=== PATIENT | female | born 1980 | race Caucasian/White ===

== ENCOUNTER 2018-08-07 09:38 | Emergency (ER) | payer OTHER ==
[~2018-08-07] VITALS: Ht 160 cm; Wt 59.0 kg
[2018-08-07 10:06] LABS: URINE BILIRUBIN NEGATIVE (Negative); URINE BLOOD NEGATIVE (Negative); URINE CLARITY CLEAR; URINE COLOR YELLOW; URINE GLUCOSE-RANDOM* NEGATIVE (Negative); URINE KETONES NEGATIVE (Negative); URINE LEUKOCYTES-REFLEX NEGATIVE (Negative); URINE NITRITE-REFLEX NEGATIVE (Negative); URINE PROTEIN (DIPSTICK) NEGATIVE (Negative); URINE SPECIFIC GRAVITY <= 1.005 (1.005-1.035); URINE UROBILINOGEN 0.2 E.U./dl (0.2-1.0)
[2018-08-07 10:52] LABS: ABSOLUTE NEUTROPHILS 7.2 thou/uL (1.4-8.2); BASOPHILS 0.6 % (0.0-2.0); EOSINOPHILS 0.8 % (0.0-3.0); LYMPHOCYTES 15.5 % (24.0-44.0); MCH 34.7 pg (26.0-34.0); MCHC 36.4 g/dL (28.0-37.0); MCV 95.3 fL (80.0-100.0); PLATELET COUNT 266 thou/uL (150-400); POLYS 74.1 % (36.0-66.0); RBC 4.62 mil/uL (4.20-5.00); RDW 12.5 % (10.5-14.5); WBC 9.7 thou/uL (4.0-11.0)
[2018-08-07 10:54] LABS: CREATININE 0.7 mg/dL (0.6-1.0); POTASSIUM 3.8 mmol/L (3.5-5.1)
[2018-08-07 11:00] LABS: ALBUMIN 4.2 g/dL (3.4-5.0); TOTAL BILIRUBIN 0.8 mg/dL (<0.1-1.0)
[2018-08-07] MEDS ORDERED: NORCO 5-325 TA1 EACH PO (12:07)
[2018-08-07] MEDS ORDERED: SENNA8.6 MG PO (12:07)
[2018-08-07 13:29] VITALS: BP 115/69
== END 2018-08-07 13:30 | disposition home or self-care (01) ==
LOC: ER 09:38
PROVIDERS: Physician Assistant
DX: D25.9 Leiomyoma of uterus, unspecified (principal); F17.210 Nicotine dependence, cigarettes, uncomplicated